=== PATIENT | female | born 1975 | race Caucasian/White ===

== ENCOUNTER 2025-05-02 07:47 | Day surgery (SDC) | payer BC ==
[~2025-05-02 07:47] MED LIST: Sodium Chloride 0.9% 10 ML Syringe FLUSH PRN
[2025-05-02] MEDS ORDERED: Midazolam 1 MG/ML 2 ML SDV IV ONE (07:48)
[2025-05-02] MEDS ORDERED: fentaNYL 100 MCG/2 ML SDV IV ONE (07:48)
[2025-05-02] MEDS ORDERED: Propofol 200 MG/20 ML SDV IV ONE (07:48)
[2025-05-02] MEDS: Lactated Ringers 1,000 ML IV SCH (08:15)
[2025-05-02] MEDS: Simethicone Drops 40 MG/0.6 ML 30 ML Bottle ONE (09:47)
== END 2025-05-02 11:16 | disposition home or self-care (01) ==
LOC: FB.SDS 07:47
PROVIDERS: ATTEND Surgery
DX: K29.50 Unspecified chronic gastritis without bleeding (principal); B96.81 Helicobacter pylori [H. pylori] as the cause of diseases classified elsewhere; K20.90 Esophagitis, unspecified without bleeding; K57.30 Diverticulosis of large intestine without perforation or abscess without bleeding; D50.9 Iron deficiency anemia, unspecified; R19.5 Other fecal abnormalities; E66.9 Obesity, unspecified; Z88.0 Allergy status to penicillin; Z68.31 Body mass index [BMI] 31.0-31.9, adult; Z79.899 Other long term (current) drug therapy; Z87.891 Personal history of nicotine dependence
CPT/HCPCS: 00813; 43239; 45378; 88305; 88342; A9270; J2250; J2704; J3010; J7120